=== PATIENT | male | born 2000 | race Caucasian/White ===

== ENCOUNTER 2019-11-15 04:49 | Emergency (ER) | payer OTHER ==
[~2019-11-15] VITALS: Ht 167.6 cm; Wt 66.4 kg
[2019-11-15 05:56] LABS: BASO # 0.1 10^3/uL (0.0-0.2); BASO % 0.5 % (0.0-1.0); EOS # 0.1 10^3/uL (0.0-0.5); EOS % 0.5 % (0.0-3.0); HEMATOCRIT 44.2 % (42.0-52.0); HEMOGLOBIN 14.7 g/dl (13.5-17.5); LYMPH # 2.1 10^3/uL (1.5-5.0); LYMPH % 17.5 % (24.0-44.0); MEAN CORPUSCULAR HEMOGLOBIN 29.8 pg (27.0-33.0); MEAN CORPUSCULAR HGB CONC 33.3 g/dl (32.0-36.5); MEAN CORPUSCULAR VOLUME 89.7 fl (80.0-96.0); MONO # 0.8 10^3/uL (0.0-0.8); NEUTROPHILS # 8.8 10^3/uL (1.5-8.5); PLATELET COUNT, AUTOMATED 310 10^3/uL (150-450); RED BLOOD COUNT 4.93 10^6/uL (4.30-6.10); WHITE BLOOD COUNT 11.9 10^3/uL (4.0-10.0)
[2019-11-15 06:04] LABS: ALBUMIN 4.2 GM/DL (3.2-5.2); BILIRUBIN,DIRECT 0.1 MG/DL (0.0-0.2); BILIRUBIN,TOTAL 0.4 MG/DL (0.2-1.0); TOTAL PROTEIN 8.4 GM/DL (6.4-8.2)
[2019-11-15] MEDS ORDERED: ONDANSETRON 4MG/2ML VIAL IV ONE (06:45)
[2019-11-15] MEDS ORDERED: MORPHINE 4 MG/ML 1ML VIAL/SYRINGE (J2270) IV ONE (06:45)
--- NOTE | 2019-11-15 11:03 | REP ---
MRI lumbar spine without contrast: History: Low back pain with leg numbness. Inability to urinate. Technique: Sagittal and axial T1 and T2-weighted scans are acquired in the usual fashion with and without fat saturation. Sequences include spin echo, turbo spin-echo, and STIR imaging sequences. MRI findings: There is some straightening of the normal lumbar lordosis. Lumbar vertebral body heights are preserved. No bony destructive lesion is seen. The tip of the conus medullaris is normal in position and appearance at T12. No extra vertebral abnormality is observed. Axial and sagittal images taken at L5-S1 demonstrate a moderate sized right central focal disc protrusion which extends 2-3 mm caudal. This compresses the right ventral margin of the thecal sac and contacts the exiting right S1 root. No overall central canal stenosis or neural foraminal narrowing is seen. There is no evidence of spondylolysis or spondylolisthesis. The posterior margins of the L4-5, L3-4, and L2-3 disc spaces are unremarkable. At L1-2, there is mild degenerative disc narrowing but no focal disc protrusion. Impression: Right paracentral, moderate sized, focal disc protrusion at L5-S1 with thecal sac compression and contact with the right S1 root. Electronically Signed by Low Nieves MD 11/15/2019 11:18 A
[2019-11-15] MEDS ORDERED: methylPREDNISolone INJ 125 MG/2 ML VIAL (J2930) IV ONE (12:30)
[2019-11-15] MEDS ORDERED: NS 1,000 ML IV ONE (12:30)
[2019-11-15] MEDS ORDERED: KETOROLAC 30 MG/ML 1ML VIAL IV ONE (12:30)
[2019-11-15] MEDS ORDERED: diazePAM 10 MG TAB PO ONE (12:45)
--- NOTE | 2019-11-15 13:19 | ED PDOC ---
Post-Departure Follow-Up dr stevenson and brooke bowles faxed formal report of mri ls spine for fu Melany Shannon MD Nov 15, 2019 13:19
[2019-11-15 16:00] VITALS: BP 126/60
== END 2019-11-15 16:18 | disposition short-term general hospital (02) ==
LOC: M ED 04:49
DX: G83.4 Cauda equina syndrome (principal); M51.27 Other intervertebral disc displacement, lumbosacral region; R33.8 Other retention of urine
CPT/HCPCS: 51702; 72148; 80047; 80076; 81001; 83690; 85025; 96361; 96374; 96375; 99285; J1885; J2270; J2405; J2930